=== PATIENT | female | born 1975 | race Caucasian/White ===

== ENCOUNTER 2021-11-11 19:21 | Inpatient (IN) ==
[2021-11-11 21:04] LABS: Bilirubin,Urine Negative (Negative); Blood,Urine Negative (Negative); Clarity,Urine Turbid (Clear); Color,Urine Yellow (Yellow); Glucose,Urine (UA) Normal (Normal); Ketones,Urine Negative (Negative); Leukocyte Esterase,Urine Negative (Negative); Mucus,Urine Few per lpf (None-Few); Nitrite,Urine Negative (Negative); Protein,Urine 30 mg/dL (Neg-Trace); RBC,Urine 0-3 per hpf (0-3); Squamous Epithelial Cell,Urine Moderate per hpf (None-Few)
[2021-11-11 21:14] LABS: Amphetamine Screen,Urine Positive ng/mL (Cutoff=1000); Barbiturate Screen,Urine Negative ng/mL (Cutoff=200); Benzodiazepines Screen,Urine Negative ng/mL (Cutoff=200); Cannabinoid Screen,Urine Negative ng/mL (Cutoff = 50); Cocaine Screen,Urine Negative ng/mL (Cutoff= 300); Opiate Screen,Urine Negative ng/mL (Cutoff=300); Phencyclidine Screen,Urine Negative ng/mL (Cutoff=25)
[2021-11-11 21:15] LABS: Acetaminophen < 10 mcg/mL (10-20); BUN/Creatinine Ratio 20 (6-26); Blood Urea Nitrogen 12 mg/dL (6-20); Calcium 8.7 mg/dL (8.6-10.3); Carbon Dioxide 23 mEq/L (23-29); Chloride 110 mEq/L (98-107); Ethanol < 10 mg/dL (Less than 10); Glucose 139 mg/dL (70-105); Osmolality,Calculated 290 (280-300); Potassium 3.9 mEq/L (3.5-5.1); Salicylate < 2.5 mg/dL (15.0-30.0); Sodium 139 mEq/L (136-145); eGFR For African Americans > 60 (> 60); eGFR For Non-African Americans > 60 (> 60)
[2021-11-11 21:24] LABS: Basophils % 0.5 %; Eosinophils # 0.2 K/mcL (0.0-0.6); Eosinophils % 3.6 %; Hematocrit 37.8 % (35.3-44.9); Hemoglobin 12.8 g/dL (11.5-15.4); Immature Granulocytes % 0.2 % (0-4); Lymphocytes # 2.5 K/mcL (0.6-4.6); Lymphocytes % 44.8 %; Mean Corpuscular HGB Conc 33.9 g/dL (31.6-35.5); Mean Corpuscular Hemoglobin 32.2 pg (28.0-33.3); Mean Platelet Volume 8.9 fL (9.4-12.4); Monocytes # 0.5 K/mcL (0.0-1.3); Monocytes % 9.5 %; Neutrophils # 2.3 K/mcL (1.6-8.9); Platelet Count 106 K/mcL (140-400); Red Blood Count 3.98 M/mcL (3.82-4.97); Red Cell Distribution Width 13.7 % (11.5-14.5); Segmented Neutrophils % 41.4 %; White Blood Count 5.6 K/mcL (4.3-11.1)
[2021-11-11 21:27] LABS: Thyroid Stimulating Hormone 1.386 mcIU/mL (0.340-5.600)
[2021-11-12 01:18] LABS: Influenza A PCR Negative (Negative); Influenza B PCR Negative (Negative); Resp. Syncytial Virus PCR Negative (Negative)
[2021-11-12 01:21] LABS: SARS-CoV-2 by PCR (In House) Negative (Negative)
[2021-11-12] MEDS ORDERED: *HR* LORazepam 2 MG/ML VIAL IM PRN (01:36)
[2021-11-12] MEDS ORDERED: Ibuprofen 400 MG TABLET PO PRN (01:36)
[2021-11-12] MEDS ORDERED: Haloperidol Lactate 5 MG/ML VIAL IM PRN (01:36)
[2021-11-12] MEDS ORDERED: *HR* LORazepam 1 MG TABLET PO PRN (01:36)
[2021-11-12] MEDS ORDERED: haloperidoL 5 MG TABLET PO PRN (01:36)
[2021-11-12] MEDS ORDERED: hydrOXYzine pamoate 25 MG CAPSULE PO PRN (01:36)
[2021-11-12] MEDS ORDERED: MOM Conc 10 ML UD.LIQ PO PRN (13:10)
[2021-11-12] MEDS ORDERED: Mag Hydrox/Al Hydrox/Simeth 30 ML UDC PO PRN (13:10)
[2021-11-12] MEDS ORDERED: lamoTRIgine 25 MG TABLET PO SCH (21:00)
[2021-11-12] MEDS ORDERED: ARIPiprazole 5 MG TABLET PO SCH (21:00)
[2021-11-12] MEDS: traZODone 50 MG TABLET PO PRN (21:26)
[2021-11-13] MEDS: ARIPiprazole 10 MG TABLET PO SCH (15:26)
[2021-11-13] MEDS: Furosemide 20 MG TABLET PO SCH ×2 (15:28→17:05)
[2021-11-13 20:15] VITALS: O2SAT 96
[2021-11-13] MEDS ORDERED: lamoTRIgine 25 MG TABLET PO SCH (21:00)
[2021-11-13] MEDS: traZODone 50 MG TABLET PO PRN (21:28)
[2021-11-14] MEDS: Furosemide 20 MG TABLET PO SCH (09:24)
[2021-11-14] MEDS: ARIPiprazole 10 MG TABLET PO SCH (09:24)
[2021-11-14 10:05] VITALS: BP 117/77; PULSE 90; TEMP 97.4
== END 2021-11-14 14:30 | disposition home or self-care (01) | DRG 751 ==
LOC: EMEROOARM 19:21 → 1ANU 11-12 01:28
PROVIDERS: ADMIT Psychiatry & Neurology Psychiatry; ATTEND Psychiatry & Neurology Psychiatry